=== PATIENT | male | born 1955 | race Hispanic/Latino ===

== ENCOUNTER 2018-07-18 06:39 | Day surgery (SDC) | payer OTHER ==
[~2018-07-18 06:39] MED LIST: COLESTEROL MED
== END 2018-07-18 06:55 | DRG 395 ==
LOC: ORM 06:39
PROVIDERS: ATTEND Surgery
DX: K40.90 Unilateral inguinal hernia, without obstruction or gangrene, not specified as recurrent (principal); Z53.8 Procedure and treatment not carried out for other reasons

== ENCOUNTER → 2018-09-12 | Day surgery (SDC) | payer OTHER ==
[~2018-09-12] VITALS: Ht 167.6 cm; Wt 74.8 kg
[2018-09-12 09:38] VITALS: BP 136/78
== END | disposition home or self-care (01) | DRG 352 ==
LOC: ORM 06:20
PROVIDERS: ATTEND Surgery
PROC: 0YU50JZ Supplement Right Inguinal Region with Synthetic Substitute, Open Approach (ICD-10-PCS; principal; 2018-09-12)
DX: K40.90 Unilateral inguinal hernia, without obstruction or gangrene, not specified as recurrent (principal)
CPT/HCPCS: C9290; J0131

== ENCOUNTER 2019-05-04 06:29 | Day surgery (SDC) | payer OTHER ==
[~2019-05-04] VITALS: Ht 167.6 cm; Wt 74.8 kg
[~2019-05-04 06:29] MED LIST changes: +BLOOD PRESSURE; +CHOLESTEROL; +NORVASC5 M1 PO; +PRAVASTATIN SOD20 MG PO; +[UNRECOGNIZED DRUG - OTHER]
[2019-05-04 10:46] VITALS: BP 127/83
== END 2019-05-04 10:52 | DRG 572 ==
LOC: ORM 06:29
PROVIDERS: ATTEND Surgery
PROC: 0JB60ZZ Excision of Chest Subcutaneous Tissue and Fascia, Open Approach (ICD-10-PCS; principal; 2019-05-04)
PROC: 0JB70ZZ Excision of Back Subcutaneous Tissue and Fascia, Open Approach (ICD-10-PCS; 2019-05-04)
DX: D17.1 Benign lipomatous neoplasm of skin and subcutaneous tissue of trunk (principal); L72.0 Epidermal cyst